=== PATIENT | female | born 1965 | race Caucasian/White ===

== ENCOUNTER 2018-06-29 11:42 | Emergency (ER) | payer BC, MEDICAID, OTHER ==
[~2018-06-29] VITALS: Ht 165.1 cm; Wt 81.6 kg
[~2018-06-29 11:42] MED LIST: MECL-118 PO
--- NOTE | 2018-06-29 11:42 | NUR ---
Patient in walking placed on room 2A. AAOX4. vitals signs as follow HR 108, SAT 99%, 155/86. clear speech.
--- NOTE | 2018-06-29 12:14 | NUR ---
[employer] at bedside.
--- NOTE | 2018-06-29 12:50 | NUR ---
at bedside to examine patient.
[2018-06-29] MEDS ORDERED: HYDROCODONE/APAP 5-325MG TABLET PO ONE (13:00)
[2018-06-29] MEDS ORDERED: HYDROCODONE/APAP 5-325MG TABLET ONE (13:02)
--- NOTE | 2018-06-29 13:02 | NUR ---
heating repair technician at bedside.
[2018-06-29] MEDS ORDERED: IBUPROFEN 800 MG TABLET PO ONE (13:45)
--- NOTE | 2018-06-29 13:45 | NUR ---
[facility] intructions and prescription provided to patient. Educated on pain management by Dr. Hitchcock. Patient premedicated with motrin as ordered. Left unit AAOX4. VSS 120/60, 97% on RA. HR. 81. 97.7 oral temp.
--- NOTE | 2018-06-29 13:45 | NUR ---
at bedside educating patient.
[2018-06-29] MEDS ORDERED: IBUPROFEN 800 MG TABLET ONE (13:57)
--- NOTE | 2018-06-29 13:58 | NUR ---
Patient left room Ambulatory AAOX4. with pain well controlled.
== END 2018-06-29 14:00 | disposition home or self-care (01) ==
LOC: ER 11:43
DX: S16.1XXA Strain of muscle, fascia and tendon at neck level, initial encounter (principal); S39.012A Strain of muscle, fascia and tendon of lower back, initial encounter; M26.629 Arthralgia of temporomandibular joint, unspecified side; Z90.49 Acquired absence of other specified parts of digestive tract; V49.49XA Driver injured in collision with other motor vehicles in traffic accident, initial encounter; Y93.89 Activity, other specified; Y92.410 Unspecified street and highway as the place of occurrence of the external cause; Y99.8 Other external cause status
CPT/HCPCS: 72125; 72131; 73030; 99284; A4663

== ENCOUNTER 2019-09-09 13:29 | Emergency (ER) | payer BC, OTHER ==
[~2019-09-09] VITALS: Ht 165.1 cm; Wt 81.6 kg
[2019-09-09] MEDS ORDERED: ONDANSETRON ODT 4 MG TAB.RAPDIS SL ONE (13:45)
[2019-09-09 14:02] LABS: BASOPHILS % (AUTO) 0.6 % (0.0-2.0); EOSINOPHILS # (AUTO) 0.1 K/uL (0.0-0.7); EOSINOPHILS % (AUTO) 0.9 % (0.0-7.0); HEMATOCRIT 38.2 % (31.2-41.9); LYMPHOCYTES # (AUTO) 2.7 K/uL (20.0-40.0); LYMPHOCYTES % (AUTO) 38.7 % (20.5-51.5); MEAN CORPUSCULAR HEMOGLOBIN 28.3 uug (24.7-32.8); MEAN CORPUSCULAR HGB CONC 34 g/dL (32.3-35.6); MEAN CORPUSCULAR VOLUME 83.3 fL (75.5-95.3); MONOCYTES # (AUTO) 0.4 K/uL (2.0-10.0); MONOCYTES % (AUTO) 5.2 % (0.0-11.0); NEUTROPHILS # (AUTO) 3.8 K/uL (1.8-8.9); NEUTROPHILS % (AUTO) 54.6 % (38.5-71.5); PLATELET COUNT (AUTO) 260 K/uL (179-408); RED BLOOD CELL COUNT(AUTO) 4.59 MIL/uL (3.63-4.92); WHITE BLOOD COUNT (AUTO) 7.1 K/uL (3.8-11.8)
[2019-09-09 14:10] LABS: CREATININE 0.6 mg/dL (0.6-1.3); POTASSIUM 3.8 mmol/L (3.5-5.1)
[2019-09-09 14:16] LABS: BILIRUBIN,DIRECT 0.1 mg/dL (0.0-0.2); BILIRUBIN,TOTAL 0.5 mg/dL (0.2-1.0); TOTAL PROTEIN, SERUM 6.6 g/dL (6.4-8.2)
[2019-09-09] MEDS ORDERED: ONDANSETRON ODT 4 MG TAB.RAPDIS ONE (14:16)
[2019-09-09] MEDS ORDERED: HYDROCODONE/APAP 5-325MG TABLET ONE (15:03)
--- NOTE | 2019-09-09 15:12 | NUR ---
Patient discharged to home in stable conditon. Written and verbal after care instructions given. Patient verbalizes understanding of instructions.pt son will leaf size picker the pt.
[2019-09-09 15:13] VITALS: BP 129/81
[2019-09-09] MEDS ORDERED: HYDROCODONE/APAP 5-325MG TABLET PO ONE (15:15)
== END 2019-09-09 15:14 | disposition home or self-care (01) ==
LOC: ER 13:29
DX: R51 Headache (principal); R42 Dizziness and giddiness; Z90.49 Acquired absence of other specified parts of digestive tract; Z79.899 Other long term (current) drug therapy
CPT/HCPCS: 36415; 70030-TC; 70450; 85025; 93005; A4663; Q0162

== ENCOUNTER 2020-03-09 13:48 | Emergency (ER) | payer OTHER ==
[~2020-03-09] VITALS: Ht 165.1 cm; Wt 104.3 kg
--- NOTE | 2020-03-09 13:52 | NUR ---
Dr Jamil seen and examined the PT.
[2020-03-09] MEDS ORDERED: IV NORMAL SALINE 1000 ML BAG IV ONE (14:00)
[2020-03-09 14:14] LABS: BASOPHILS % (AUTO) 0.6 % (0.0-2.0); CREATININE 0.8 mg/dL (0.6-1.3); EOSINOPHILS % (AUTO) 0.6 % (0.0-7.0); HEMATOCRIT 41.3 % (31.2-41.9); LYMPHOCYTES # (AUTO) 2.7 K/uL (20.0-40.0); LYMPHOCYTES % (AUTO) 37.2 % (20.5-51.5); MEAN CORPUSCULAR HEMOGLOBIN 28.1 uug (24.7-32.8); MEAN CORPUSCULAR HGB CONC 34 g/dL (32.3-35.6); MEAN CORPUSCULAR VOLUME 82.7 fL (75.5-95.3); MONOCYTES # (AUTO) 0.3 K/uL (2.0-10.0); MONOCYTES % (AUTO) 4.4 % (0.0-11.0); NEUTROPHILS # (AUTO) 4.2 K/uL (1.8-8.9); NEUTROPHILS % (AUTO) 57.2 % (38.5-71.5); PLATELET COUNT (AUTO) 263 K/uL (179-408); POTASSIUM 3.8 mmol/L (3.5-5.1); RED BLOOD CELL COUNT(AUTO) 4.99 MIL/uL (3.63-4.92); WHITE BLOOD COUNT (AUTO) 7.3 K/uL (3.8-11.8)
[2020-03-09 14:20] LABS: BILIRUBIN,DIRECT 0.2 mg/dL (0.0-0.2); BILIRUBIN,TOTAL 0.7 mg/dL (0.2-1.0); TOTAL PROTEIN, SERUM 7.6 g/dL (6.4-8.2)
[2020-03-09] MEDS ORDERED: LORAZEPAM 2 MG/1 ML VIAL ONE (14:44)
[2020-03-09] MEDS ORDERED: LORAZEPAM 2 MG/1 ML VIAL IV ONE (14:45)
--- NOTE | 2020-03-09 15:08 | NUR ---
MEDICATED FOR INCREASING ANXIETY - EFFECTIVE. PT FEELING BETTER AT THIS TIME. WAS ABLE TO AMBULATE TO BATHROOM AND BACK.
--- NOTE | 2020-03-09 15:34 | NUR ---
Patient discharged to home in stable condition. Written and verbal after care instructions given. Patient verbalizes understanding of instructions.pt walks in steady gait. Stressed follow up or return to ER for worsening s/s.pt not driving. Addendum: 03/09/20 at 1537 by DEENA pt says feels better.
[2020-03-09 15:36] VITALS: BP 116/79
== END 2020-03-09 15:37 | disposition home or self-care (01) ==
LOC: ER 13:48
DX: R42 Dizziness and giddiness (principal); H60.92 Unspecified otitis externa, left ear; F41.0 Panic disorder [episodic paroxysmal anxiety]
CPT/HCPCS: 71045; 80048; 80076; 83880; 84484; 85025; 93005; 96361; 96374; 99285; J2060; 70030-TC; A4663; J7030

== ENCOUNTER 2023-12-20 09:42 | Emergency (ER) | payer OTHER ==
[~2023-12-20] VITALS: Ht 165.1 cm; Wt 104.3 kg
[2023-12-20] MEDS ORDERED: KETOROLAC TROMETHAMINE 30 MG INJ ONE (10:22)
[2023-12-20] MEDS ORDERED: ONDANSETRON 4 MG/2 ML VIAL ONE (10:22)
[2023-12-20] MEDS: ONDANSETRON 4 MG/2 ML VIAL IV ONE (10:26)
[2023-12-20] MEDS: KETOROLAC TROMETHAMINE 15 MG INJ IVP ONE (10:26)
[2023-12-20] MEDS: IV NORMAL SALINE 1000 ML BAG IV ONE (10:26)
[2023-12-20 10:31] LABS: BASOPHILS # (AUTO) 0.1 K/UL (0.0-0.2); BASOPHILS % (AUTO) 0.7 % (0.0-2.0); EOSINOPHILS # (AUTO) 0.1 K/uL (0.0-0.7); HEMATOCRIT 39.6 % (31.2-41.9); HEMOGLOBIN 13.6 g/dL (10.9-14.3); LYMPHOCYTES # (AUTO) 1.5 K/uL (0.8-4.8); MEAN CORPUSCULAR HEMOGLOBIN 28.9 uug (24.7-32.8); MEAN CORPUSCULAR HGB CONC 34 g/dL (32.3-35.6); MONOCYTES # (AUTO) 0.4 K/uL (0.1-1.30); NEUTROPHILS # (AUTO) 5.2 K/uL (1.8-8.9); NEUTROPHILS % (AUTO) 72.3 % (38.5-71.5); PLATELET COUNT (AUTO) 220 K/uL (179-408); RED BLOOD CELL COUNT(AUTO) 4.71 MIL/uL (3.63-4.92); RED CELL DISTRIBUTION WIDTH 13.5 % (12.3-17.7); WHITE BLOOD COUNT (AUTO) 7.2 K/uL (3.8-11.8)
[2023-12-20 10:38] LABS: DIFFERENTIAL COMMENT 1
[2023-12-20 10:48] LABS: CALCIUM 8.7 mg/dL (8.5-10.1); CARBON DIOXIDE 29 mmol/L (21-32); CHLORIDE 107 mmol/L (98-107); CREATININE 0.7 mg/dL (0.6-1.3); GLUCOSE 98 mg/dL (74-106); POTASSIUM 3.5 mmol/L (3.5-5.1); SODIUM SERUM 142 mmol/L (136-145); UREA NITROGEN, BLOOD 13 mg/dL (7-18)
[2023-12-20 10:57] LABS: ALANINE AMINOTRANSFERASE 25 U/L (14-59); ALBUMIN 3.8 g/dL (3.4-5.0); ALKALINE PHOSPHATASE 100 U/L (50-136); ASPARTATE AMINOTRANSFERASE 11 U/L (15-37); BILIRUBIN,DIRECT 0.3 mg/dL (0.0-0.2); BILIRUBIN,TOTAL 1.1 mg/dL (0.2-1.0); LIPASE 21 U/L (16-77); TOTAL PROTEIN, SERUM 7.1 g/dL (6.4-8.2)
[2023-12-20] MEDS ORDERED: paxlovid PO (11:31)
[2023-12-20 11:49] VITALS: BP 132/85; O2SAT 96
[2023-12-20] MEDS ORDERED: AZIT250T PO (12:51)
== END 2023-12-20 11:50 | disposition home or self-care (01) ==
LOC: ER 09:42
DX: U07.1 COVID-19 (principal); R53.83 Other fatigue; F41.9 Anxiety disorder, unspecified; Z79.899 Other long term (current) drug therapy; Z90.49 Acquired absence of other specified parts of digestive tract
CPT/HCPCS: 99285; 96374; 71045; 96361; 96375; 87426; 87804 ×2; 80076; 80048; 83690; 85025; 84484; 36415; 93005; J1885; J2405; J7040; A4606; A4663

== ENCOUNTER 2024-03-26 22:12 | Emergency (ER) | payer OTHER ==
[~2024-03-26] VITALS: Ht 165.1 cm; Wt 90.7 kg
[~2024-03-26 22:12] MED LIST changes: +AZIT250T PO; +paxlovid PO
[2024-03-26] MEDS ORDERED: MECL-225 PO (23:10)
[2024-03-27] MEDS ORDERED: NITROGLYCERIN 0.4 MG/TAB BOTTLE SL ONE (00:04)
[2024-03-27] MEDS ORDERED: ASPIRIN 81 MG TAB.CHEW ONE (00:04)
[2024-03-27] MEDS: ASPIRIN 81 MG TAB.CHEW PO ONE (00:06)
[2024-03-27] MEDS: NITROGLYCERIN 0.4 MG/TAB BOTTLE SL ONE (00:06)
[2024-03-27 00:18] LABS: BASOPHILS # (AUTO) 0.1 K/UL (0.0-0.2); BASOPHILS % (AUTO) 0.8 % (0.0-2.0); EOSINOPHILS # (AUTO) 0.1 K/uL (0.0-0.7); EOSINOPHILS % (AUTO) 0.9 % (0.0-7.0); HEMATOCRIT 41.1 % (31.2-41.9); HEMOGLOBIN 14.3 g/dL (10.9-14.3); LYMPHOCYTES # (AUTO) 3.4 K/uL (0.8-4.8); LYMPHOCYTES % (AUTO) 45.8 % (20.5-51.5); MEAN CORPUSCULAR HEMOGLOBIN 28.5 uug (24.7-32.8); MEAN CORPUSCULAR HGB CONC 35 g/dL (32.3-35.6); MEAN CORPUSCULAR VOLUME 82.2 fL (75.5-95.3); MONOCYTES # (AUTO) 0.3 K/uL (0.1-1.30); MONOCYTES % (AUTO) 4.4 % (0.0-11.0); NEUTROPHILS # (AUTO) 3.5 K/uL (1.8-8.9); NEUTROPHILS % (AUTO) 48.1 % (38.5-71.5); PLATELET COUNT (AUTO) 302 K/uL (179-408); RED CELL DISTRIBUTION WIDTH 13.6 % (12.3-17.7); WHITE BLOOD COUNT (AUTO) 7.4 K/uL (3.8-11.8)
[2024-03-27 00:21] LABS: DIFFERENTIAL COMMENT 1
[2024-03-27] MEDS ORDERED: LORAZEPAM 2 MG/1 ML VIAL ONE (00:23)
[2024-03-27 00:28] LABS: CARBON DIOXIDE 30 mmol/L (21-32); CHLORIDE 109 mmol/L (98-107); CREATININE 0.8 mg/dL (0.6-1.3); GLUCOSE 100 mg/dL (74-106); POTASSIUM 3.9 mmol/L (3.5-5.1); SODIUM SERUM 146 mmol/L (136-145); UREA NITROGEN, BLOOD 17 mg/dL (7-18)
[2024-03-27] MEDS: LORAZEPAM 2 MG/1 ML VIAL IV ONE (00:30)
[2024-03-27] MEDS: IV NORMAL SALINE 1000 ML BAG IV ONE ×2 (00:30→01:44)
[2024-03-27 00:42] LABS: ALANINE AMINOTRANSFERASE 23 U/L (14-59); ALBUMIN 3.7 g/dL (3.4-5.0); ALKALINE PHOSPHATASE 108 U/L (50-136); ASPARTATE AMINOTRANSFERASE 6 U/L (15-37); BILIRUBIN,DIRECT 0.2 mg/dL (0.0-0.2); BILIRUBIN,TOTAL 0.9 mg/dL (0.2-1.0); NT-PRO BNP 46 pg/mL (0-125); TOTAL PROTEIN, SERUM 7.3 g/dL (6.4-8.2)
[2024-03-27 02:43] VITALS: BP 123/84; TEMP 98; O2SAT 98
== END 2024-03-27 02:44 | disposition home or self-care (01) ==
LOC: ER 22:16
DX: R42 Dizziness and giddiness (principal); R07.89 Other chest pain; G20.C Parkinsonism, unspecified; Z90.49 Acquired absence of other specified parts of digestive tract; Z79.899 Other long term (current) drug therapy
CPT/HCPCS: 99285; 71045; 36415; 93005; 96374; 96361; 80076; 80048; 83880; 85025; 85379; 84484 ×2; J2060; J7040 ×2; A4606; A4663

== ENCOUNTER 2024-05-28 08:49 | Emergency (ER) | payer OTHER ==
[~2024-05-28] VITALS: Ht 165.1 cm; Wt 99.8 kg
[~2024-05-28 08:49] MED LIST changes: -AZIT250T PO; -MECL-118 PO; +MECL-225 PO; -paxlovid PO
[2024-05-28] MEDS ORDERED: LORAZEPAM 0.5 MG TABLET ONE (09:32)
[2024-05-28] MEDS: LORAZEPAM 0.5 MG TABLET PO ONE (09:32)
[2024-05-28 10:06] VITALS: BP 140/89; TEMP 97.1; O2SAT 98
== END 2024-05-28 10:07 | disposition home or self-care (01) ==
LOC: ER 08:49
DX: F41.9 Anxiety disorder, unspecified (principal); Z90.49 Acquired absence of other specified parts of digestive tract; Z79.899 Other long term (current) drug therapy
CPT/HCPCS: A4606; A4663